=== PATIENT | female | born 1945 | race Caucasian/White ===

== ENCOUNTER 2019-05-02 12:08 | Observation (INO) | payer MEDICARE, MEDICAID ==
[~2019-05-02] VITALS: Ht 172.7 cm; Wt 84.7 kg
[~2019-05-02 12:08] MED LIST: ALBU8.5H5 INH; AMLO5TAB4 PO; CETI10CA PO; CIPR500T87 PO; CYCL-259 PO; FAMO-79 PO; FLUT50DI INH; HYDR-3307 PO; HYDR2TAB40 PO; IBUP-1221 PO; MOME17SP INH; TRAM50TA2 PO; TRIA1CAP PO; [UNRECOGNIZED DRUG - REMARK] PO
[2019-05-02] MEDS ORDERED: DIAZEPAM 5 MG/ML, 2ML ONE (12:57)
[2019-05-02 12:59] LABS: BASOPHILS # (AUTO) 0.04 x10^3/uL (0-0.1); BASOPHILS % (AUTO) 1 % (0-1); EOSINOPHILS # (AUTO) 0.17 x10^3/uL (0-0.4); EOSINOPHILS % (AUTO) 3 % (1-7); LYMPHOCYTES # (AUTO) 1.22 x10^3/uL (1-3.4); LYMPHOCYTES % (AUTO) 20 % (22-44); MD NO; MEAN CORPUSCULAR HEMOGLOBIN 29.9 pg (27.0-34.8); MEAN CORPUSCULAR HGB CONC 32.9 g/dL (32.4-35.8); MEAN CORPUSCULAR VOLUME 90.8 fL (80-100); MEAN PLATELET VOLUME 8.8 fL (7.4-10.4); MONOCYTES # (AUTO) 0.51 x10^3/uL (0.2-0.8); MONOCYTES % (AUTO) 8 % (2-9); NEUTROPHILS # (AUTO) 4.09 x10^3/uL (1.8-6.8); NEUTROPHILS % (AUTO) 68 % (42-75); PLATELET COUNT 283 x10^3/uL (130-400); RED BLOOD COUNT 4.63 x10^6/uL (3.82-5.3)
[2019-05-02] MEDS ORDERED: DIAZEPAM 5 MG/ML, 2ML IV ONE (13:00)
[2019-05-02 13:10] LABS: ANION GAP 8 mmol/L (5-15); CALCIUM 9.3 mg/dL (8.5-10.1); CHLORIDE 106 mmol/L (98-107); CREATININE 0.75 mg/dL (0.55-1.02)
[2019-05-02] MEDS ORDERED: HYDROmorphone 2 MG/ML, 1ML ONE (14:07)
--- NOTE | 2019-05-02 14:21 | NUR ---
MRI called, states pt is in pain and cannot hold for imaging. ERP notified. New orders received. Charge nurse in MRI for first 15 minutes after adminstration of pain med to monitor respiratory status.
[2019-05-02] MEDS ORDERED: HYDROmorphone 1 MG/ML, 1ML INJ IM ONE (14:30)
[2019-05-02] MEDS ORDERED: HYDROmorphone 2 MG/ML, 1ML IV ONE (14:30)
[2019-05-02] MEDS ORDERED: morphine SULFATE 15 MG TAB.IR PO ONE (14:30)
--- NOTE | 2019-05-02 14:48 | NUR ---
Received report from ALLA Gamboa. All questions answered. Assuming care of pt at this time.
[2019-05-02] MEDS ORDERED: [UNRECOGNIZED DRUG - OTHER] (16:14)
[2019-05-02] MEDS ORDERED: HYDR-3307 PO (16:14)
[2019-05-02] MEDS ORDERED: AMLO2.5T2 PO (16:14)
[2019-05-02] MEDS ORDERED: ALPR1TAB6 PO (16:14)
[2019-05-02] MEDS ORDERED: Tramadol PO (16:14)
[2019-05-02] MEDS ORDERED: IBUPROFEN PO (16:14)
[2019-05-02] MEDS ORDERED: [UNRECOGNIZED DRUG - OTHER] (16:14)
--- NOTE | 2019-05-02 16:38 | NUR ---
LATE NOTE ENTRY FOR 1606: Pt back to room from MRI. Pt resting on gurney requesting heat pack for lower back. Provided pt with warm blankets. Pt appreciative. Pt requesting food and water, EDMD aware. Provided pt with water, pudding, apple sauce, crackers, and peanut butter. Pt appreciative. Pt connected to NIBP cuff and continous pulse ox. Call light within reach. Bedrails up x 2. No need expressed at this time.
--- NOTE | 2019-05-02 17:01 | NUR ---
Note delbertone in EDM - 05/02/19 at 1702 by [facility] Pt unable to provide urine sample at this time. Pt refusing straight cath. ED aware. PIV placed. Pt tolerated PIV without complications. NADN. Bedrails up x 2, call light within reach. Pt connected to continous pulse ox. Family at bedside. No needs expressed at this time.
--- NOTE | 2019-05-02 17:02 | NUR ---
Prior note charted on wrong pt.
--- NOTE | 2019-05-02 17:13 | NUR ---
Provided report to ALLA Howell. All questions answered. Pt ready to transfer to floor from ED.
[2019-05-02] MEDS ORDERED: HYDROcodone/APAP 5/325 TABLET PO PRN (18:00)
[2019-05-02] MEDS ORDERED: ACETAMINOPHEN 325 MG TABLET PO PRN (18:00)
--- NOTE | 2019-05-02 18:00 | NUR ---
Pt transfering to floor from ED. CHIRAG. Pt left with all personal belongings.
[2019-05-02] MEDS: CYCLOBENZAPRINE 10 MG TABLET PO SCH (19:13)
[2019-05-02] MEDS: morphine SULFATE 10 MG/ML, 1ML IVPush PRN ×2 (19:54→20:24)
[2019-05-02] MEDS: HEPARIN 5,000 UNITS/ML, 1ML SQ SCH (20:00)
[2019-05-02] MEDS: GABAPENTIN 300 MG CAPSULE PO PRN (20:24)
[2019-05-02] MEDS: POTASSIUM CHLORIDE 20 MEQ TAB.ER.PRT PO SCH (20:30)
[2019-05-02] MEDS ORDERED: ALBUTEROL SULFATE 2.5 MG/3 ML NPPB PRN (21:00)
[2019-05-03] MEDS: morphine SULFATE 10 MG/ML, 1ML IVPush PRN ×6 (00:19→22:51)
[2019-05-03 01:57] VITALS: BP 127/79
[2019-05-03] MEDS: HEPARIN 5,000 UNITS/ML, 1ML SQ SCH ×3 (02:00→17:25)
[2019-05-03] MEDS: CYCLOBENZAPRINE 10 MG TABLET PO SCH ×3 (04:21→20:10)
[2019-05-03 06:54] LABS: BASOPHILS # (AUTO) 0.03 x10^3/uL (0-0.1); BASOPHILS % (AUTO) 1 % (0-1); EOSINOPHILS # (AUTO) 0.48 x10^3/uL (0-0.4); EOSINOPHILS % (AUTO) 8 % (1-7); LYMPHOCYTES # (AUTO) 1.89 x10^3/uL (1-3.4); LYMPHOCYTES % (AUTO) 32 % (22-44); MD NO; MEAN CORPUSCULAR HEMOGLOBIN 29.8 pg (27.0-34.8); MEAN CORPUSCULAR HGB CONC 32.5 g/dL (32.4-35.8); MEAN CORPUSCULAR VOLUME 91.8 fL (80-100); MEAN PLATELET VOLUME 8.8 fL (7.4-10.4); MONOCYTES # (AUTO) 0.59 x10^3/uL (0.2-0.8); MONOCYTES % (AUTO) 10 % (2-9); NEUTROPHILS # (AUTO) 3.01 x10^3/uL (1.8-6.8); NEUTROPHILS % (AUTO) 50 % (42-75); PLATELET COUNT 276 x10^3/uL (130-400); RED BLOOD COUNT 4.78 x10^6/uL (3.82-5.3); RED CELL DISTRIBUTION WIDTH 14.3 % (9.6-15.2)
[2019-05-03 06:57] VITALS: BP 121/80
[2019-05-03 07:08] LABS: ALANINE AMINOTRANSFERASE 17 U/L (12-78); ALBUMIN 3.3 g/dL (3.4-5.0); ANION GAP 6 mmol/L (5-15); CALCIUM 9.3 mg/dL (8.5-10.1); CHLORIDE 107 mmol/L (98-107); CREATININE 0.75 mg/dL (0.55-1.02)
[2019-05-03 07:11] LABS: ALKALINE PHOSPHATASE 65 U/L (45-117); BILIRUBIN,TOTAL 0.6 mg/dL (0.2-1.0); TOTAL PROTEIN 6.8 g/dL (6.4-8.2)
[2019-05-03] MEDS: GABAPENTIN 300 MG CAPSULE PO PRN ×2 (07:29→20:10)
[2019-05-03] MEDS: POTASSIUM CHLORIDE 20 MEQ TAB.ER.PRT PO SCH ×2 (07:29→17:24)
[2019-05-03] MEDS ORDERED: BUDESONIDE 0.5 MG/2 ML INHA NPPB SCH (09:00)
[2019-05-03] MEDS: AMLODIPINE 2.5 MG TABLET PO SCH (09:56)
[2019-05-03 13:05] VITALS: BP 131/80
[2019-05-03] MEDS ORDERED: TRIA1CAP3 PO (13:48)
[2019-05-03] MEDS ORDERED: MIRA50TA PO (13:51)
[2019-05-03] MEDS ORDERED: FLUT9.9S NAS (13:55)
[2019-05-03] MEDS ORDERED: ALPRazolam 1MG TAB PO PRN (14:00)
[2019-05-03 15:24] LABS: C-REACTIVE PROTEIN, QUANT 0.29 mg/dL (0.02-0.49)
[2019-05-03 19:48] VITALS: BP 121/74
[2019-05-04 01:03] VITALS: BP 115/76
[2019-05-04] MEDS: CYCLOBENZAPRINE 10 MG TABLET PO SCH ×3 (03:59→20:03)
[2019-05-04] MEDS: HEPARIN 5,000 UNITS/ML, 1ML SQ SCH ×3 (04:00→20:00)
[2019-05-04] MEDS: morphine SULFATE 10 MG/ML, 1ML IVPush PRN ×3 (04:00→16:20)
[2019-05-04 07:49] VITALS: BP 112/72
[2019-05-04] MEDS: GABAPENTIN 300 MG CAPSULE PO PRN ×2 (09:55→16:20)
[2019-05-04] MEDS: CETIRIZINE 10 MG TABLET PO SCH (09:55)
[2019-05-04] MEDS: AMLODIPINE 2.5 MG TABLET PO SCH (09:55)
[2019-05-04] MEDS ORDERED: DIAZEPAM 5 MG/ML, 2ML IV ONE (10:30)
[2019-05-04] MEDS: FLUTICASONE NASAL SPRAY 16GM NAS SCH (11:23)
[2019-05-04 12:12] VITALS: BP 117/77
[2019-05-04] MEDS: OXYcodone/APAP 5/325MG TABLET PO PRN ×2 (12:45→20:12)
[2019-05-04 20:03] VITALS: BP 119/74
[2019-05-05] MEDS: morphine SULFATE 10 MG/ML, 1ML IVPush PRN (01:10)
[2019-05-05 01:25] VITALS: BP 118/75
[2019-05-05] MEDS: CYCLOBENZAPRINE 10 MG TABLET PO SCH ×2 (04:08→11:54)
[2019-05-05] MEDS: HEPARIN 5,000 UNITS/ML, 1ML SQ SCH ×2 (04:08→12:00)
[2019-05-05] MEDS: OXYcodone/APAP 5/325MG TABLET PO PRN ×2 (04:11→09:22)
[2019-05-05 08:00] VITALS: BP 128/83
[2019-05-05] MEDS: FLUTICASONE NASAL SPRAY 16GM NAS SCH (08:31)
[2019-05-05] MEDS: AMLODIPINE 2.5 MG TABLET PO SCH (08:32)
[2019-05-05] MEDS: CETIRIZINE 10 MG TABLET PO SCH (08:32)
[2019-05-05] MEDS ORDERED: OXYcodone/APAP 5/325MG TABLET PO PRN (10:30)
[2019-05-05] MEDS ORDERED: DIAZEPAM 5 MG/ML, 2ML IV ONE ×2 (11:00)
[2019-05-05] MEDS ORDERED: CYCL-259 PO (11:09)
[2019-05-05] MEDS ORDERED: GABA300C10 PO (11:09)
== END 2019-05-05 13:41 | disposition home or self-care (01) ==
LOC: ED 16:27 → EDIP 16:28 → INTOOBSV 16:28 → ED 16:40 → 3NE 18:34
PROVIDERS: ADMIT Hospitalist; ATTEND Hospitalist
DX: G24.3 Spasmodic torticollis (principal); R20.0 Anesthesia of skin; J45.909 Unspecified asthma, uncomplicated; E87.6 Hypokalemia; R73.9 Hyperglycemia, unspecified; M54.5 Low back pain; G89.29 Other chronic pain; I10 Essential (primary) hypertension; Z79.899 Other long term (current) drug therapy; Z88.0 Allergy status to penicillin; Z88.1 Allergy status to other antibiotic agents; Z88.2 Allergy status to sulfonamides; Z88.5 Allergy status to narcotic agent; Z88.6 Allergy status to analgesic agent; Z96.649 Presence of unspecified artificial hip joint
CPT/HCPCS: 36415; 72141; 72146; 80048; 80053; 82550; 83735; 85025; 85651; 86140; 96372; 96374; 96375; 96376; 97162; 97166; 97535; 99284; G0378; J1170; J1644; J2270; J3360